=== PATIENT | female | born 1960 | race African-American/Black ===

== ENCOUNTER 2019-07-03 08:40 | Outpatient (CLI) | payer OTHER, SELFPAY ==
--- NOTE | 2019-07-03 10:30 | NEURO_ITS ---
Patient Number: [id number] Impression: # Complains of lower extremity pain. # Left posterior tibial nerve amplitude drop compared to right. # F-waves are symmetrical. # Normal needle/EMG exam. # Clinical correlation recommended. Higher involvement cannot be ruled out. Nerve Conduction Studies Anti Sensory Summary Table Stim Site NR Peak (ms) P-T Amp (?V) Site1 Site2 Delta-P (ms) Dist (cm) Lonnie (m/s) Left Sup Fibular Anti Sensory (Ant Lat Mall) 14 cm 2.7 25.4 14 cm Ant Lat Mall 2.7 16.0 59 Right Sup Fibular Anti Sensory (Ant Lat Mall) 14 cm 3.0 17.2 14 cm Ant Lat Mall 3.0 16.0 53 Left Sural Anti Sensory (Lat Mall) Calf 3.3 8.9 Calf Lat Mall 3.3 16.0 48 Right Sural Anti Sensory (Lat Mall) Calf 3.3 5.0 Calf Lat Mall 3.3 16.0 48 Motor Summary Table Stim Site NR Onset (ms) O-P Amp (mV) Site1 Site2 Delta-0 (ms) Dist (cm) Lonnie (m/s) Left Peroneal Motor (Vastus Med) Ankle 4.0 2.6 Popit Ankle 6.1 35.0 57 Popit 10.1 2.5 Right Peroneal Motor (Vastus Med) Ankle 3.9 1.5 Popit Ankle 6.1 35.0 57 Popit 10.0 1.2 Left Tibial Motor (Abd Lind Brev) Ankle 4.6 0.4 Knee Ankle 5.9 39.0 66 Knee 10.5 0.2 Right Tibial Motor (Abd Lind Brev) Ankle 4.2 2.9 Knee Ankle 7.5 40.0 53 Knee 11.7 0.6 F Wave Studies NR F-Lat (ms) L-R F-Lat (ms) Left Peroneal (Mrkrs) (EDB) 50.03 0.75 Right Peroneal (Mrkrs) (EDB) 50.78 0.75 Left Tibial (Mrkrs) (Abd Hallucis) 50.87 1.47 Right Tibial (Mrkrs) (Abd Hallucis) 49.40 1.47 EMG Side Muscle Nerve Root Ins Act Fibs Amp Dur Recrt Comment Right AntTibialis Dp Br Fibular L4-5 Nml Nml Nml Nml Nml Right Gastroc Tibial S1-2 Nml Nml Nml Nml Nml Right Fibularis Long Sup Br Fibular L5-S1 Nml Nml Nml Nml Nml Right Flex Dig Long Tibial L5-S2 Nml Nml Nml Nml Nml Right Ext Dig Brev Dp Br Fibular L5, S1 Nml Nml Nml Nml Nml Left AntTibialis Dp Br Fibular L4-5 Nml Nml Nml Nml Nml Left Gastroc Tibial S1-2 Nml Nml Nml Nml Nml Left Fibularis Long Sup Br Fibular L5-S1 Nml Nml Nml Nml Nml Left Flex Dig Long Tibial L5-S2 Nml Nml Nml Nml Nml Left Ext Dig Brev Dp Br Fibular L5, S1 Nml Nml Nml Nml Nml MTDD
== END 2019-07-03 08:41 | disposition home or self-care (01) ==
DX: M54.16 Radiculopathy, lumbar region (principal); M54.40 Lumbago with sciatica, unspecified side
CPT/HCPCS: 95886; 95910